=== PATIENT | female | born 1950 | race Caucasian/White ===

== ENCOUNTER 2021-11-04 07:23 | Outpatient (CLI) | payer MEDICARE, OTHER | END 2021-11-04 23:59 | disposition home or self-care (01) | LOC: LAB 07:23 | PROVIDERS: ATTEND Surgery | DX: Z01.812 Encounter for preprocedural laboratory examination (principal); Z20.822 Contact with and (suspected) exposure to COVID-19 ==

== ENCOUNTER 2021-11-05 07:23 | Day surgery (SDC) | payer MEDICARE, OTHER ==
[2021-11-05] MEDS ORDERED: LIDOCAINE-MPF 2% 5 ML VIAL IJ ONE (07:24)
[2021-11-05] MEDS ORDERED: SEVOFLURANE 250 ML BOTTLE IH ONE (07:24)
[2021-11-05] MEDS ORDERED: CEFAZOLIN 1 G VIAL IM ONE (07:24)
[2021-11-05] MEDS ORDERED: METOCLOPRAMIDE HCL 10 MG/2 ML VIAL IV ONE (07:24)
[2021-11-05] MEDS ORDERED: PROPOFOL 200 MG/20 ML BOTTLE IV ONE (07:24)
[2021-11-05] MEDS ORDERED: ATROPINE SULFATE 1 MG/ML VIAL IM ONE (07:24)
[2021-11-05] MEDS ORDERED: ONDANSETRON 4 MG/2 ML VIAL IV ONE (07:24)
[2021-11-05] MEDS ORDERED: SUCCINYLCHOLINE CHLORIDE 200 MG/10 ML VIAL IV ONE (07:24)
[2021-11-05 08:04] LABS: HEMATOCRIT 37.7 % (31.2-41.9); MEAN CORPUSCULAR HEMOGLOBIN 28.4 uug (24.7-32.8); PLATELET COUNT (AUTO) 284 K/uL (179-408)
[2021-11-05 08:05] LABS: *BILIRUBIN,URIN NEGATIVE (NEGATIVE); *BLOOD, URINE 1+ (NEGATIVE); *CLARITY,URINE CLEAR (CLEAR); *COLOR,URINE YELLOW (YELLOW); *KETONES,URINE NEGATIVE (NEGATIVE); *UROBILINOGEN,URINE 0.2 E.U./dl (NORMAL); LEUKOCYTE ESTERASE ,URINE TRACE (NEGATIVE); NITRITE, URINE NEGATIVE (NEGATIVE); PH,URINE 5.5 (5.0-8.0); UGLUCOSE NEGATIVE (NEGATIVE)
[2021-11-05] MEDS ORDERED: BACITRACIN ZINC OINT 15 GM TUBE ONE (08:14)
[2021-11-05] MEDS ORDERED: BUPIVACAINE PF 0.5% 30 ML VIAL ONE (08:14)
[2021-11-05] MEDS ORDERED: LIDOCAINE 1%-EPI 1:100,000 20 ML VIAL ONE (08:14)
[2021-11-05 08:16] LABS: BILIRUBIN,TOTAL 0.4 mg/dL (0.2-1.0); CREATININE 0.8 mg/dL (0.6-1.3); POTASSIUM 3.8 mmol/L (3.5-5.1); TOTAL PROTEIN, SERUM 7.6 g/dL (6.4-8.2)
[2021-11-05 08:16] LABS: BACTERIA,URINE FEW /HPF (NONE SEEN); RBC,URINE 0-3 /HPF (0-3); SQUAMOUS EPITHELIAL CELL,UR FEW /HPF (NONE SEEN)
[2021-11-05] MEDS ORDERED: FENTANYL CITRATE 100 MCG/2 ML AMPUL ONE (11:18)
[2021-11-05] MEDS ORDERED: IBUPROFEN 800 MG TABLET PO ONE (11:30)
[2021-11-05] MEDS ORDERED: ACETAMINOPHEN 325 MG TABLET PO ONE (11:30)
[2021-11-05] MEDS ORDERED: GABAPENTIN 300 MG CAPSULE PO ONE (11:30)
[2021-11-05] MEDS ORDERED: GABAPENTIN 300 MG CAPSULE ONE (12:02)
[2021-11-05] MEDS ORDERED: IBUPROFEN 800 MG TABLET ONE (12:02)
[2021-11-05] MEDS ORDERED: ACETAMINOPHEN 325 MG TABLET ONE (12:03)
== END 2021-11-05 13:05 | disposition home or self-care (01) ==
LOC: DS 07:23
PROVIDERS: ATTEND Surgery
DX: K62.5 Hemorrhage of anus and rectum (principal); K64.8 Other hemorrhoids; K21.9 Gastro-esophageal reflux disease without esophagitis; K31.89 Other diseases of stomach and duodenum; K29.50 Unspecified chronic gastritis without bleeding; K63.89 Other specified diseases of intestine; F41.9 Anxiety disorder, unspecified; F32.9 Major depressive disorder, single episode, unspecified; Z86.010 Personal history of colon polyps; Z79.899 Other long term (current) drug therapy; Z98.890 Other specified postprocedural states
CPT/HCPCS: 36415; 43239; 45378; 46255; 71045; 80053; 81001; 85025; 85730; 87086; J0330; J0690; J2405; J2765; J3010; J3490 ×3; J7120; A4663; J0461